=== PATIENT | female | born 1995 | race Two or more races ===

== ENCOUNTER 2020-11-20 09:02 | Emergency (ER) | payer MEDICAID, OTHER ==
[~2020-11-20] VITALS: Ht 172.7 cm; Wt 104.3 kg
[2020-11-20 09:21] VITALS: BP 126/86
[2020-11-20] MEDS ORDERED: ACETAMINOPHEN 500 MG TAB PO ONE (11:00)
== END 2020-11-20 11:49 | disposition home or self-care (01) ==
LOC: ER 09:02
DX: U07.1 COVID-19 (principal); R51.9 Headache, unspecified
CPT/HCPCS: 36415; 71045; 87426

== ENCOUNTER 2021-06-05 10:39 | Emergency (ER) | payer MEDICAID ==
[~2021-06-05] VITALS: Ht 172.7 cm; Wt 104.3 kg
[2021-06-05 11:01] VITALS: BP 117/70
[2021-06-05 11:51] LABS: Basophils # (auto) 0 10 ^3/uL (0-0.2); Basophils % (auto) 0.7 % (0.0-2.0); Eosinophils # (auto) 0.1 10 ^3/uL (0-0.8); Hemoglobin 8.4 g/dL (12.2-16.2); Mean Corpuscular Hgb Conc. 30.4 g/dL (32.0-36.0); Monocytes # (auto) 0.4 10 ^3/uL (0-1.3); Nucleated Red Blood Cells % 0.1 %; White Blood Cell 6.3 10^3/uL (4.4-10.8)
[2021-06-05 11:54] LABS: Hematocrit 27.5 % (36.0-46.0); Lymphocytes # (auto) 1.5 10 ^3/uL (0.4-5.4); Lymphocytes % (auto) 23.4 % (10.0-50.0); Mean Corpuscular Hemoglobin 21.5 pg (28.0-32.0); Mean Corpuscular Volume 70.6 fL (80.0-100.0); Monocytes % (auto) 5.7 % (0.0-12.0); Neutrophils # (auto) 4.3 10 ^3/uL (1.6-8.6); Neutrophils % (auto) 68.2 % (37.0-80.0); Red Cell Distribution Width 17.9 % (11.8-14.3)
[2021-06-05 12:09] LABS: Albumin 3.4 g/dL (3.4-5.0); Calcium 8.6 mg/dL (8.5-10.1); Potassium 3.9 mmol/L (3.5-5.1)
[2021-06-05 12:12] LABS: BUN/Creatinine Ratio 12.5
[2021-06-05 12:14] LABS: Urine Bacteria NONE SEEN /hpf (None Seen); Urine Blood 3+ /uL (Negative); Urine Mucus MODERATE (None Seen); Urine WBC 1216 /hpf (0 - 5); Urine WBC Clumps PRESENT /hpf (None Seen)
[2021-06-05 12:15] LABS: Bilirubin, Total 0.4 mg/dL (0.2-1.0); Total Protein 7.6 g/dL (6.4-8.2)
[2021-06-05] MEDS ORDERED: FER325T PO (12:28)
[2021-06-05] MEDS ORDERED: SULF400T11 PO (12:28)
[2021-06-05] MEDS ORDERED: NAPR500T31 PO (12:28)
== END 2021-06-05 12:47 | disposition home or self-care (01) ==
LOC: ER 10:39
DX: N39.0 Urinary tract infection, site not specified (principal); N92.6 Irregular menstruation, unspecified; D64.9 Anemia, unspecified
CPT/HCPCS: 36415; 80053; 81001; 84702; 85025; 86850; 86900; 86901

== ENCOUNTER 2021-06-20 12:42 | Emergency (ER) | payer MEDICAID ==
[~2021-06-20] VITALS: Ht 172.7 cm; Wt 104.3 kg
[~2021-06-20 12:42] MED LIST: FER325T PO; NAPR500T31 PO; SULF400T11 PO
[2021-06-20 12:56] VITALS: BP 123/63
[2021-06-20] MEDS ORDERED: METR500T PO (14:38)
[2021-06-20 15:15] LABS: Urine Bacteria NONE SEEN /hpf (None Seen); Urine Blood Negative /uL (Negative); Urine Mucus MANY (None Seen); Urine Specific Gravity 1.036 (1.001-1.035); Urine WBC 2 /hpf (0 - 5)
== END 2021-06-20 14:40 | disposition home or self-care (01) ==
LOC: ER 12:42
DX: N76.0 Acute vaginitis (principal); B96.89 Other specified bacterial agents as the cause of diseases classified elsewhere; Z86.2 Personal history of diseases of the blood and blood-forming organs and certain disorders involving the immune mechanism; Z79.899 Other long term (current) drug therapy
CPT/HCPCS: 81001; 81025; 87210

== ENCOUNTER 2021-06-28 07:14 | Emergency (ER) | payer MEDICAID ==
[~2021-06-28] VITALS: Ht 175.3 cm; Wt 104.3 kg
[~2021-06-28 07:14] MED LIST changes: +METR500T PO
[2021-06-28 08:12] VITALS: BP 134/81
[2021-06-28 09:12] LABS: Urine Specific Gravity 1.042 (1.001-1.035)
[2021-06-28 09:33] LABS: Urine Blood Negative /uL (Negative)
[2021-06-28] MEDS ORDERED: CEPH-509 PO (09:41)
[2021-06-28 09:47] LABS: Urine Bacteria FEW /hpf (None Seen); Urine WBC 2 /hpf (0 - 5)
== END 2021-06-28 09:49 | disposition home or self-care (01) ==
LOC: ER 07:14
DX: N39.0 Urinary tract infection, site not specified (principal); Z86.2 Personal history of diseases of the blood and blood-forming organs and certain disorders involving the immune mechanism; Z79.899 Other long term (current) drug therapy
CPT/HCPCS: 81001; 81025; 87086; 87210

== ENCOUNTER 2021-10-18 19:37 | Emergency (ER) | payer MEDICAID ==
[~2021-10-18] VITALS: Ht 175.3 cm; Wt 100.0 kg
[~2021-10-18 19:37] MED LIST changes: +CEPH-509 PO
[2021-10-18 21:51] LABS: Basophils % (auto) 0.6 % (0.0-2.0); Eosinophils # (auto) 0.2 10 ^3/uL (0-0.8); White Blood Cell 7.8 10^3/uL (4.4-10.8)
[2021-10-18 21:53] LABS: Basophils # (auto) 0.1 10 ^3/uL (0-0.2); Eosinophils % (auto) 2.6 % (0.0-7.0); Hematocrit 22.9 % (36.0-46.0); Lymphocytes # (auto) 2.4 10 ^3/uL (0.4-5.4); Lymphocytes % (auto) 30.8 % (10.0-50.0); Mean Corpuscular Hemoglobin 18.4 pg (28.0-32.0); Mean Corpuscular Hgb Conc. 28.8 g/dL (32.0-36.0); Mean Corpuscular Volume 63.9 fL (80.0-100.0); Monocytes # (auto) 0.5 10 ^3/uL (0-1.3); Monocytes % (auto) 5.8 % (0.0-12.0); Neutrophils # (auto) 4.7 10 ^3/uL (1.6-8.6); Neutrophils % (auto) 60.2 % (37.0-80.0); Red Blood Cells 3.59 10^6/uL (4.0-5.20); Red Cell Distribution Width 20.8 % (11.8-14.3)
[2021-10-18 21:58] LABS: Urine Bacteria NONE SEEN /hpf (None Seen); Urine Blood 3+ /uL (Negative); Urine Mucus MANY (None Seen); Urine Specific Gravity 1.028 (1.001-1.035); Urine WBC 37 /hpf (0 - 5)
[2021-10-18 22:03] LABS: Hemoglobin 6.6 g/dL (12.2-16.2)
[2021-10-18 22:22] LABS: Albumin 3.4 g/dL (3.4-5.0); Calcium 8.6 mg/dL (8.5-10.1); Potassium 3.5 mmol/L (3.5-5.1)
[2021-10-18 22:26] LABS: BUN/Creatinine Ratio 13.5; Bilirubin, Total 0.4 mg/dL (0.2-1.0)
[2021-10-19 01:43] VITALS: BP 146/89
[2021-10-19 01:52] VITALS: BP 135/83
[2021-10-19 02:07] VITALS: BP 140/78
[2021-10-19] MEDS ORDERED: MEDR5TAB28 PO (02:54)
[2021-10-19] MEDS ORDERED: medroxyPROGESTERone ACETATE 5 MG TAB PO ONE (03:00)
[2021-10-19 03:40] VITALS: BP 133/78
[2021-10-19 03:48] VITALS: BP 137/78
== END 2021-10-19 04:05 | disposition home or self-care (01) ==
LOC: ER 19:39
DX: D64.9 Anemia, unspecified (principal); N92.5 Other specified irregular menstruation
CPT/HCPCS: 36415; 36430; 76856; 80053; 81001; 84702; 85025; 86850; 86900; 86901; 86920; 99285; P9016

== ENCOUNTER 2022-01-14 14:35 | Emergency (ER) | payer MEDICAID ==
[~2022-01-14] VITALS: Ht 175.3 cm; Wt 110.0 kg
[~2022-01-14 14:35] MED LIST changes: +MEDR5TAB28 PO
[2022-01-14] MEDS ORDERED: LIDO2SOL23 MT (15:59)
[2022-01-14] MEDS ORDERED: AZIT500T66 PO (15:59)
[2022-01-14 16:03] VITALS: BP 133/69
== END 2022-01-14 16:04 | disposition home or self-care (01) ==
LOC: ER 14:35
DX: J03.90 Acute tonsillitis, unspecified (principal); F12.10 Cannabis abuse, uncomplicated